=== PATIENT | male | born 1955 | race Caucasian/White ===

== ENCOUNTER 2016-07-28 19:10 | Emergency (ER) | payer OTHER ==
[2016-07-28] MEDS ORDERED: IPRATROPIUM/ALBUTEROL 3 ML DEYVIAL IH ONE ×2 (19:21→20:18)
--- NOTE | 2016-07-28 20:11 | DX ---
PA and Lateral Chest History: Chest pain. Findings: The heart and mediastinum are normal. Pulmonary vascularity is normal. The lungs are clear. There is no pleural fluid. A pneumothorax is not identified. Hyperexpansion is suspected and degener ative changes are noted in the spine. Impression: 1. Hyperexpansion could reflect airways disease. 2. Spinal degenerative changes are noted.
[2016-07-28] MEDS ORDERED: IPRATROPIUM/ALBUTEROL 3 ML DEYVIAL ONE (20:18)
[2016-07-28] MEDS ORDERED: BENZONATATE 100 MG CAP PO ONE ×2 (20:18→20:19)
--- NOTE | 2016-07-28 20:24 | EDPHY ---
H & P Time Seen by Provider: 07/28/16 19:25 HPI/ROS: HPI Cough, shortness of breath. 61-year-old male by private vehicle with his . This patient reports having a dry cough for the last 2 weeks. He reports that over the last several days it has been worse. He reports that he starts having coughing fits and get short of breath with these fits. He denies any history of asthma or reactive airway disease. He has not had a fever. No myalgias or arthralgias. No other complaint. He is fully immunized. ROS: Constitutional: No fever, no chills. No weakness. Eyes: No discharge. No changes in vision. ENT: No sore throat. No nasal congestion or rhinorrhea. Respiratory: As above. Cardiac: No chest pain, no palpitations. Gastrointestinal: No abdominal pain, no vomiting, no diarrhea. Genitourinary: No hematuria. No dysuria or increased frequency with urination. Musculoskeletal: No back pain. No neck pain. No myalgias or arthralgias. Skin: No rashes. Neurological: No headache. No focal weakness or altered sensation. Past medical history: Hypertension for which she takes lisinopril. Social history: He is here with his . He is a nonsmoker. Physical Exam: General Appearance: Alert, no distress. This patient is responding to questions appropriately and in full sentences. This patient appears well- hydrated and well-nourished. Eyes: Pupils equal and round no pallor or injection. No lid edema, erythema or injection. Respiratory: There are no retractions, he has good air movement bilaterally with diffuse and scant rhonchi. No tachypnea. Cardiovascular: Regular rate and rhythm. No murmur. Neurological: Motor sensory function is grossly intact. Cranial nerves are normal. Gait is normal. Skin: Warm and dry, no rashes. Musculoskeletal: Neck is supple and nontender. No cervical, submental or submandibular lymphadenopathy. Extremities are symmetrical. All joints range without pain or impingement. Psychiatric: No agitation. No depression. Database: Influenza-negative. EKG: Imaging: Chest x-ray PA and lateral; the cardiac mediastinal silhouette is unremarkable. No evidence of infiltrate or pneumothorax. Some hyper expansion noted. Probable bronchitis No acute cardiopulmonary disease process noted. Interpreted by me. Procedures: Emergency department course: After my initial evaluation of this patient as stated above he was given an albuterol/Atrovent nebulizer treatment. He stated that this made him feel better. His vital signs have been reviewed and are unremarkable. Room air pulse oximetry is 97%. He is afebrile. Moderately hypertensive. 9:00 p.m., patient re-evaluated. Resting comfortably at this time. Read signs reviewed and are unremarkable. Repeat pulmonary exam he is clear on auscultation bilaterally. Good air movement. No wheezing or rhonchi. He feels comfortable going home and I feel he is safe for discharge. Discussed diagnosis of bronchitis. Secondary to prolonged cough patient will be prescribed azithromycin for possible underlying pneumonia. He will be given an inhaler as well as Tessalon Perle for cough. Follow up with his primary care physician was discussed with him. All of his questions were answered. Return to emergency department precautions thoroughly reviewed. He was discharged in good condition. Differential Diagnosis: The differential diagnosis on this patient includes but is not limited to bronchitis, reactive airway disease. Pneumonia, congestive heart failure, pulmonary embolism, influenza unlikely. This represents a partial list of diagnoses considered. These considerations are based on history, physical exam , past history, reassessment and diagnostic testing. Smoking Status: Former smoker Constitutional: Initial Vital Signs Temperature (C) 36.8 C 07/28/16 19:19 Heart Rate 73 07/28/16 19:19 Respiratory Rate 18 07/28/16 19:19 Blood Pressure 159/98 H 07/28/16 19:19 O2 Sat (%) 97 07/28/16 19:19 O2 Delivery Mode Room Air Allergies/Adverse Reactions: No Known Allergies Allergy (Unverified 07/28/16 19:19) Home Medications: Medication Instructions Recorded Albuterol [Proventil Inhaler HFA 2 puffs IH Q2-4PRN PRN #1 mdi 07/28/16 (*)] Azithromycin [Zithromax] 250 mg PO DAILY #6 tab 07/28/16 Benzonatate [Tessalon Pearles] 100 mg PO TID #12 cap 07/28/16 Lisinopril 07/28/16 Medical Decision Making - Data Points Laboratory Results: 07/28/16 20:26 Influenza Typ A,B (DFA) NEGATIVE FOR FLU (NEGATIVE) Medications Given: Discontinued Medications Albuterol/Ipratropium (Duoneb) 3 ml IH EDNOW ONE Stop: 07/28/16 19:22 Last Admin: 07/28/16 19:45 Dose: 3 ml Albuterol/Ipratropium (Duoneb) 3 ml IH EDNOW ONE Stop: 07/28/16 20:19 Last Admin: 07/28/16 20:28 Dose: 3 ml Benzonatate (Tessalon Pearles) 200 mg PO EDNOW ONE Stop: 07/28/16 20:20 Last Admin: 07/28/16 20:24 Dose: 200 mg Departure - Departure Disposition: Home, Routine, Self-Care Clinical Impression: Bronchitis Condition: Good Instructions: Acute Bronchitis (ED) Additional Instructions: Read and follow provided instructions. Follow-up with your primary care physician in 1-2 days for re-evaluation. Take medication as prescribed. Return to the emergency department for worsening cough, difficulty breathing, high fever or other serious concerns. Referrals: NONE *PRIMARY CARE P,. [Primary Care Provider] - As per Instructions Prescriptions: Albuterol [Proventil Inhaler HFA (*)] 2 puffs IH Q2-4PRN PRN #1 mdi PRN Reason: Sob/Dyspnea Benzonatate [Tessalon Pearles] 100 mg PO TID #12 cap Azithromycin [Zithromax] 250 mg PO DAILY #6 tab
[2016-07-28 20:30] VITALS: RESP 16
[2016-07-28 21:20] VITALS: BP 127/71; PULSE 67; TEMP 98.1; O2SAT 98
== END 2016-07-28 21:19 | disposition home or self-care (01) ==
LOC: EDUNIT#
DX: J20.9 Acute bronchitis, unspecified (principal); I10 Essential (primary) hypertension; Z87.891 Personal history of nicotine dependence